=== PATIENT | female | born 1965 | race Caucasian/White ===

== ENCOUNTER 2023-12-30 08:26 | Emergency (ER) | payer BC, SELFPAY ==
--- NOTE | ~2023-12-30 | XR_ITS ---
EXAMINATION: XR chest 2V DATE: 12/30/2023 09:29 INDICATION: Abnormal breath sounds, left. TECHNIQUE: Frontal and lateral views of the chest were obtained. COMPARISON: Chest view 01/27/2013 FINDINGS: There is mild atelectasis at right lung base. There is no pneumonia, pleural effusion, or p neumothorax. The heart size is normal. There are changes of anterior fusion procedure in cervical spi ne. Surgical clips in the right upper quadrant are likely from cholecystectomy. IMPRESSION: 1. Mild atelectasis at right lung base. Reviewed, dictated and finalized at location A.
[2023-12-30 08:54] VITALS: BP 160/92; PULSE 84; RESP 18; TEMP 36.6; O2SAT 100
--- NOTE | 2023-12-30 09:15 | ED.URI ---
HPI - URI/Sore Throat General Chief Complaint: Upper Respiratory Infection Stated Complaint: breathing issues Time Seen by Provider: 12/30/23 09:16 Source: patient, RN notes reviewed and old records reviewed Mode of arrival: ambulatory Limitations: no limitations History of Present Illness HPI Narrative: Patient presents with complaints of painful cough, left-sided. She reports that this has been present for 4 days. She reports the pain is constant, but incredibly aggravated by cough. Radiates to the back. Patient reports that she had an upper respiratory infection about 10 days ago, thought she was getting better, than current symptoms began. patient is a current smoker. She works in an assisted living facility, has had several sick contacts. She reports that she is tired and just feels bad . She has been taking ibuprofen for her symptoms with no relief Related Data Home Medications Medication Instructions Recorded Confirmed atorvastatin 40 mg tablet mg 12/30/23 ezetimibe 10 mg tablet mg 12/30/23 insulin glargine 100 unit/mL 10 unit subcut BID 12/30/23 12/30/23 subcutaneous solution (Lantus U-100 Insulin) insulin regular human 4 unit 0 unit inhalation .COMPLEX 12/30/23 12/30/23 (90)/8 unit (90) cartridge with inhaler lisinopril 20 mg tablet mg 12/30/23 metoprolol succinate 50 mg mg PO 12/30/23 tablet,extended release 24 hr pregabalin 75 mg capsule mg 12/30/23 Allergies Allergy/AdvReac Type Severity Reaction Status Date / Time simvastatin Allergy Unknown BREATHING Verified 12/30/23 09:08 PROBLEMS METAL Allergy Intermediate RASH Uncoded 12/30/23 09:08 CAUSING ABSCESSES. PROCHLORPERAZINE EDISYLATE Allergy Unknown Unknown Uncoded 12/30/23 09:08 PROCHLORPERAZINE MALEATE Allergy Unknown Unknown Uncoded 12/30/23 09:08 Review of Systems Review of Systems: All systems reviewed & are unremarkable except as noted in HPI and below Constitutional: Constitutional: Reports as per HPI and Reports no additional constitutional complaints ENT: Reports system reviewed and no additional complaints, except as documented Cardiovascular: Cardiovascular: Reports no additional cardiovascular complaints Respiratory: Respiratory: Reports as per HPI, Reports no additional respiratory complaints, Reports pain on inspiration, Reports pain with cough, Denies dyspnea, Denies stridor and Denies wheezing Gastrointestinal: Gastrointestinal: Reports no additional gastrointestinal complaints Exam Const: General: cooperative, no acute distress, alert, awake and uncomfortable Orientation/consciousness: oriented to person, oriented to place and oriented to time HENMT: Head: normal to inspection Mouth: Yes moist mucous membranes Resp: Effort & Inspection: normal respiratory effort and able to speak in complete sentences Auscultation: clear to auscultation bilaterally, crackles on the left at the base, no rales, no rhonchi and no wheezes Cardio: Palpation: normal PMI Rate: regular rate Rhythm: regular rhythm Heart sounds: S1 normal heart sound present and S2 normal heart sound present Neuro: General: oriented to person, oriented to place and oriented to time Cranial nerves: Yes CN's II-XII intact bilaterally Psych: Appearance: grossly normal Thought process: Normal thought process present Insight: Good insight present (Psych) Judgement: Good judgement present (Psych) Course Course Level of Care: Express Care Visit Vital Signs Vital signs: Vital Signs Temperature 97.9 F 12/30/23 08:54 Pulse Rate 84 12/30/23 08:54 Respiratory Rate 18 12/30/23 08:54 Blood Pressure 160/92 H 12/30/23 08:54 Pulse Oximetry 100 12/30/23 08:54 Oxygen Delivery Room Air 12/30/23 08:54 Temperature 97.9 F 12/30/23 08:54 Pulse Rate 84 12/30/23 08:54 Respiratory Rate 18 12/30/23 08:54 Blood Pressure 160/92 H 12/30/23 08:54 Pulse Oximetry 100 12/30/23 08:54 Oxygen Delivery Room Air 0
== END 2023-12-30 10:00 | disposition home or self-care (01) ==
PROVIDERS: Emergency Provider Nurse Practitioner Family; PCP Nurse Practitioner Family
DX: J44.1 Chronic obstructive pulmonary disease with (acute) exacerbation (principal); F17.200 Nicotine dependence, unspecified, uncomplicated
CPT/HCPCS: 71046; 99213; G0463